=== PATIENT | female | born 1980 | race Caucasian/White ===

== ENCOUNTER 2024-02-02 14:40 | Outpatient (CLI) | payer OTHER, SELFPAY | END 2024-02-02 14:41 | disposition home or self-care (01) | PROVIDERS: Visit Provider Nurse Practitioner Family | DX: R00.0 Tachycardia, unspecified (principal); R03.0 Elevated blood-pressure reading, without diagnosis of hypertension; R53.83 Other fatigue; Z13.6 Encounter for screening for cardiovascular disorders | CPT/HCPCS: 80053; 80061; 84443 ==